=== PATIENT | female | born 1955 | race Caucasian/White ===

== ENCOUNTER 2020-04-15 20:33 | Emergency (ER) | payer MEDICARE, OTHER ==
[~2020-04-15] VITALS: Ht 167.6 cm; Wt 87.8 kg
[2020-04-15 20:42] VITALS: BP 150/90
[2020-04-15] MEDS ORDERED: LIDOCAINE 2%, 20ML SQ ONE (21:00)
[2020-04-15] MEDS ORDERED: LIDOCAINE-MPF 2% ,5ML ONE (21:17)
--- NOTE | 2020-04-15 21:20 | NUR ---
WOUND CLEANED XRAY COMPLETED
--- NOTE | 2020-04-15 21:29 | NUR ---
PA AT BEDSIDE FOR SUTURES AT THIS TIME
--- NOTE | 2020-04-15 22:07 | NUR ---
Patient/Caregiver given discharge instructions and they have confirmed that they understand the instructions. Patient ambulatory with steady gait.
== END 2020-04-15 22:09 | disposition home or self-care (01) ==
LOC: ED 22:00
DX: S61.412A Laceration without foreign body of left hand, initial encounter (principal); S29.011A Strain of muscle and tendon of front wall of thorax, initial encounter; R07.89 Other chest pain; W01.0XXA Fall on same level from slipping, tripping and stumbling without subsequent striking against object, initial encounter; Y93.89 Activity, other specified; Y92.009 Unspecified place in unspecified non-institutional (private) residence as the place of occurrence of the external cause; Y99.8 Other external cause status
CPT/HCPCS: 12041; 71045; 99284